=== PATIENT | female | born 2000 | race Caucasian/White ===

== ENCOUNTER 2020-12-31 13:58 | Emergency (ER) | payer OTHER ==
[~2020-12-31 13:58] MED LIST: IBUPROFEN600 MG PO; ZOFRAN ODT 4 MG4 MG PO
[2020-12-31 15:31] LABS: RED BLOOD COUNT 5.07 M/UL (4.00-5.10); WHITE BLOOD COUNT 11.9 K/UL (4.5-11.0)
[2020-12-31 15:47] LABS: BUN/CREATININE RATIO 10 (0-10)
[2020-12-31] MEDS ORDERED: ZOFRAN ODT 4 MG4 MG PO (17:28)
[2020-12-31] MEDS ORDERED: CEPHALEXIN500 M1 PO (17:28)
[2021-01-07] MEDS ORDERED: GABAPENTIN300 MG PO (09:10)
[2021-01-07] MEDS ORDERED: SUBOXONE 8 MG-1 EACH SL (09:11)
[2021-01-07] MEDS ORDERED: HYDROCODON-ACE1 EAC2 PO (11:55)
== END 2020-12-31 18:30 | disposition home or self-care (01) ==
LOC: ER1 13:58
PROVIDERS: Emergency Medicine
DX: K80.20 Calculus of gallbladder without cholecystitis without obstruction (principal); N39.0 Urinary tract infection, site not specified; F12.90 Cannabis use, unspecified, uncomplicated; Z20.822 Contact with and (suspected) exposure to COVID-19; F17.200 Nicotine dependence, unspecified, uncomplicated; Z90.89 Acquired absence of other organs; Z88.5 Allergy status to narcotic agent
CPT/HCPCS: 0240U; 80053; 80307; 81001; 83690; 84703; 85025; 96374; 99284; J2405; Q9967

== ENCOUNTER → 2021-01-07 | Day surgery (SDC) | payer OTHER ==
[~2021-01-07] MED LIST changes: +CEPHALEXIN500 M1 PO; +GABAPENTIN300 MG PO; +HYDROCODON-ACE1 EAC2 PO; +SUBOXONE 8 MG-1 EACH SL
== END | disposition home or self-care (01) ==
LOC: OR 07:43
PROVIDERS: Surgery
PROC: 0FT44ZZ Resection of Gallbladder, Percutaneous Endoscopic Approach (ICD-10-PCS; principal; 2021-01-07 10:45)
DX: K80.10 Calculus of gallbladder with chronic cholecystitis without obstruction (principal); F17.210 Nicotine dependence, cigarettes, uncomplicated; J45.909 Unspecified asthma, uncomplicated; M19.011 Primary osteoarthritis, right shoulder; F41.9 Anxiety disorder, unspecified; Z20.822 Contact with and (suspected) exposure to COVID-19; Z88.5 Allergy status to narcotic agent; Z79.899 Other long term (current) drug therapy
CPT/HCPCS: 84703; J0690; J1100; J2001; J2250; J2405; J2704; J2710; J3010; J7030; J7120

== ENCOUNTER 2022-04-24 09:31 | Emergency (ER) | payer OTHER ==
[2022-04-24] MEDS ORDERED: CEPHALEXIN500 M1 PO (11:28)
[2022-04-24] MEDS ORDERED: BACITRAYCIN PLU28 G1 TP (11:28)
[2022-04-24] MEDS ORDERED: IBUPROFEN600 MG PO (11:28)
[2022-04-24] MEDS ORDERED: HYDROCODON-ACE1 EAC4 PO (11:37)
== END 2022-04-24 11:51 | disposition home or self-care (01) ==
LOC: ER1 09:31
DX: T20.011A Burn of unspecified degree of right ear [any part, except ear drum], initial encounter (principal); F17.210 Nicotine dependence, cigarettes, uncomplicated; X08.8XXA Exposure to other specified smoke, fire and flames, initial encounter; Y92.009 Unspecified place in unspecified non-institutional (private) residence as the place of occurrence of the external cause
CPT/HCPCS: 16020; 96374; 96375; 99283; J1885; J2270; J2405

== ENCOUNTER 2022-07-06 20:39 | Emergency (ER) | payer OTHER ==
[~2022-07-06 20:39] MED LIST changes: +BACITRAYCIN PLU28 G1 TP; +HYDROCODON-ACE1 EAC4 PO
[2022-07-06 22:11] LABS: HEMOGLOBIN 14.1 gm/dl (12.3-15.3); RED BLOOD COUNT 4.81 M/UL (4.00-5.10); WHITE BLOOD COUNT 8.1 K/UL (4.5-11.0)
[2022-07-06 22:20] LABS: BUN/CREATININE RATIO 10 (0-10)
== END 2022-07-06 23:25 | disposition home or self-care (01) ==
LOC: ER1 20:39
PROVIDERS: Emergency Medicine; Physician Assistant
DX: S41.132A Puncture wound without foreign body of left upper arm, initial encounter (principal); S41.131A Puncture wound without foreign body of right upper arm, initial encounter; F17.210 Nicotine dependence, cigarettes, uncomplicated; L98.499 Non-pressure chronic ulcer of skin of other sites with unspecified severity; Z88.5 Allergy status to narcotic agent; X58.XXXA Exposure to other specified factors, initial encounter
CPT/HCPCS: 80053; 80307; 81001; 82550; 82553; 84484; 84703; 85025; 93005; 99283